=== PATIENT | female | born 1950 | race Caucasian/White ===

== ENCOUNTER 2017-09-17 19:44 | Emergency (ER) | payer MEDICARE, OTHER ==
[~2017-09-17] VITALS: Ht 160 cm; Wt 50.5 kg
[2017-09-17 19:55] VITALS: BP 104/55; TEMP 96.8
[2017-09-17] MEDS ORDERED: SYNTHROID0.1 MG/TAB PO (22:04)
[2017-09-17] MEDS ORDERED: ESTRACE0.5 MG PO (22:04)
[2017-09-17] MEDS ORDERED: ADALAT CC30 MG PO (22:05)
[2017-09-17] MEDS ORDERED: ULTRAM 50MG TAB50 MG PO (22:06)
[2017-09-17] MEDS ORDERED: FLONASEALLERGY (22:07)
[2017-09-17] MEDS ORDERED: CATAFLAM50 MG (22:08)
[2017-09-17] MEDS ORDERED: NITRO-BID22 TOP (22:09)
[2017-09-17] MEDS ORDERED: PROTONIX 40MG T40 MG PO (22:09)
[2017-09-17] MEDS ORDERED: PROAIR HFA0.09 MG/AC IH (22:09)
[2017-09-17] MEDS ORDERED: VOLTAREN GEL 1%1 TU TP (22:10)
[2017-09-17] MEDS ORDERED: MULTI VITAMINS1 TAB PO (22:11)
[2017-09-17] MEDS ORDERED: DESYREL 50MG50 MG PO (22:11)
[2017-09-17] MEDS ORDERED: PROBIOTIC-SUNMARK (22:12)
[2017-09-17] MEDS ORDERED: VITAMIN D31000 I1 PO (22:12)
[2017-09-17] MEDS ORDERED: ASPIRIN 32325 MG/TAB PO (22:13)
[2017-09-17] MEDS ORDERED: STOOL SOFTENER100 M2 PO (22:13)
[2017-09-17] MEDS ORDERED: FISH OIL 500 M1 EAC1 PO (22:13)
[2017-09-17] MEDS ORDERED: CLEOCIN HC150 MG/CAP PO (22:17)
[2017-09-17 22:38] VITALS: PULSE 77
== END 2017-09-17 22:38 | disposition home or self-care (01) ==
LOC: COL.ER 19:44
DX: S51.811A Laceration without foreign body of right forearm, initial encounter (principal); S63.501A Unspecified sprain of right wrist, initial encounter; Z23 Encounter for immunization; V19.9XXA Pedal cyclist (driver) (passenger) injured in unspecified traffic accident, initial encounter